=== PATIENT | male | born 1940 | race Caucasian/White ===

== ENCOUNTER 2018-03-27 18:07 | Inpatient (IN) | payer BC, OTHER ==
[2018-03-27 18:29] LABS: ADD MAN DIFF? NO
[2018-03-27 18:34] LABS: WHITE BLOOD COUNT 14.3 10^3/ul (4.8-10.8)
[2018-03-27 18:34] LABS: BASOPHILS % 0.2 % (0.0-2.0); EOSINOPHILS % 0.1 % (0.0-7.0); HEMATOCRIT 27.8 % (42.0-52.0); HEMOGLOBIN 9.6 g/dl (14.0-18.0); LYMPHOCYTES # 2.6 10^3/ul (0.8-2.9); LYMPHOCYTES % 18.4 % (15.0-51.0); MEAN CORPUSCULAR HEMOGLOBIN 34.3 pg (29.0-33.0); MEAN CORPUSCULAR HGB CONC 34.5 g/dl (32.0-37.0); MEAN CORPUSCULAR VOLUME 99.3 fl (82.0-101.0); MEAN PLATELET VOLUME 8.8 fl (7.4-10.4); MONOCYTE # 1.5 10^3/ul (0.3-0.9); MONOCYTES % 10.4 % (0.0-11.0); NEUTROPHIL # 9.5 10^3/ul (1.6-7.5); NEUTROPHILS % 66.6 % (39.0-77.0); PLATELET COUNT 127 10^3/UL (140-415); POSITIVE DIFF @See below; RED CELL DISTRIBUTION WIDTH 18.4 % (11.5-14.5)
[2018-03-27 18:49] LABS: AMMONIA 16 umol/l (9-30)
[2018-03-27 18:52] LABS: ALANINE AMINOTRANSFERASE 40 IU/L (13-69); ALBUMIN 1.8 g/dl (3.3-4.9); ALKALINE PHOSPHATASE 293 IU/L (42-121); ANION GAP 9 (5-13); ASPARTATE AMINO TRANSFERASE 62 IU/L (15-46); BILIRUBIN,INDIRECT 2.3 mg/dl (0-1.1); BILIRUBIN,TOTAL 3.2 mg/dl (0.2-1.3); BLOOD UREA NITROGEN 16 mg/dl (7-20); CALCIUM 7.1 mg/dl (8.4-10.2); CARBON DIOXIDE 24 mmol/L (21-31); CHLORIDE 92 mmol/L (97-110); CREATININE 0.51 mg/dl (0.61-1.24); GLUCOSE 160 mg/dl (70-220); POTASSIUM 4.1 mmol/L (3.5-5.1); SODIUM 125 mmol/L (135-144); TOTAL PROTEIN 3.6 g/dl (6.1-8.1)
[2018-03-27] MEDS: SOD CHLORIDE 0.9% 1,950 ML IV (18:52)
[2018-03-27 19:04] LABS: TROPONIN-I 0.019 ng/ml (0.000-0.120)
[2018-03-27 19:08] LABS: FREE THYROXINE INDEX (Calc) 2.06 ug/ml (0.65-3.89); T3 UPTAKE 58.9 % (23.5-40.5); T4 (THYROXINE) 3.5 ug/dl (5.5-11.0)
[2018-03-27 19:15] LABS: INR 1.38; PROTIME 17.1 Sec (11.9-14.9); PT RATIO 1.3
[2018-03-27 19:16] LABS: PARTIAL THROMBOPLASTIN TIME 40.8 Sec (23.0-35.0)
[2018-03-27 19:47] LABS: ANISOCYTOSIS 2+ (0-0); BAND NEUTROPHILS #M 0.2 10^3/ul (0.0-0.6); BAND NEUTROPHILS % (M) 2 % (0-4); GIANT THROMBO% (M) 1 % (0-0); LYMPHOCYTES #M 1.7 10^3/ul (0.8-2.9); LYMPHOCYTES % (M) 12 % (15-51); MICROCYTOSIS 1+ (0-0); MONOCYTE #M 0.5 10^3/ul (0.3-0.9); MONOCYTES % (M) 4 % (0-11); PLATELET ESTIMATE DECREASED; POIKILOCYTOSIS 1+ (0-0); POLYCHROMASIA 1+ (0-0); SEG NEUT #M 11.8 10^3/ul (1.6-7.5); SEGMENTED NEUTROPHILS (M) % 82 % (39-77); SMUDGE%M 17 % (0-0)
[2018-03-27] MEDS ORDERED: ONDANSETRON 4 MG INJ IV ×2 (20:00→20:30)
[2018-03-27] MEDS ORDERED: ACETAMINOPHEN 325 MG TAB PO ×2 (20:00→20:30)
[2018-03-27] MEDS: CEFEPIME 2GM/50 ML (PMX) 50 ML IVPB (20:29)
[2018-03-27] MEDS ORDERED: DOCUSATE SODIUM 100 MG CAP PO (20:30)
[2018-03-27] MEDS ORDERED: NACL 0.9% 3 ML SYG IV (20:30)
[2018-03-27] MEDS ORDERED: BISACODYL (EC) 5 MG TAB PO (20:30)
[2018-03-27] MEDS: LINEZOLID 600 MG/D5W (PMX) 300 ML IVPB (21:06)
[2018-03-27 21:13] LABS: LIPASE 31 U/L (23-300)
[2018-03-27 21:29] LABS: FREE T4 (FREE THYROXINE) 1.32 ng/dl (0.78-2.44)
[2018-03-27 21:30] LABS: FREE T3 1.94 pg/ml (2.77-5.27)
[2018-03-27] MEDS: PIPER-TAZO 3.375 GM IV (PMX) 100 ML IVPB (23:30)
[2018-03-27] MEDS: RIFAXIMIN 550 MG TAB PO (23:38)
[2018-03-28] MEDS: SOD CHLORIDE 0.9% 500 ML IV ×2 (00:25→04:44)
[2018-03-28 00:55] LABS: ALANINE AMINOTRANSFERASE 41 IU/L (13-69); ALBUMIN 1.7 g/dl (3.3-4.9); ALKALINE PHOSPHATASE 271 IU/L (42-121); ANION GAP 10 (5-13); ASPARTATE AMINO TRANSFERASE 51 IU/L (15-46); BILIRUBIN,TOTAL 2.6 mg/dl (0.2-1.3); BLOOD UREA NITROGEN 14 mg/dl (7-20); CALCIUM 6.8 mg/dl (8.4-10.2); CARBON DIOXIDE 22 mmol/L (21-31); CHLORIDE 95 mmol/L (97-110); CREATININE 0.48 mg/dl (0.61-1.24); GLUCOSE 163 mg/dl (70-220); POTASSIUM 3.6 mmol/L (3.5-5.1); SODIUM 127 mmol/L (135-144); TOTAL PROTEIN 3.4 g/dl (6.1-8.1)
[2018-03-28 05:29] LABS: ABNORMAL IP MESSAGE 1; HEMATOCRIT 26.6 % (42.0-52.0); HEMOGLOBIN 9.2 g/dl (14.0-18.0); MEAN CORPUSCULAR HEMOGLOBIN 34.1 pg (29.0-33.0); MEAN CORPUSCULAR HGB CONC 34.6 g/dl (32.0-37.0); MEAN CORPUSCULAR VOLUME 98.5 fl (82.0-101.0); MEAN PLATELET VOLUME 8.8 fl (7.4-10.4); PLATELET COUNT 127 10^3/UL (140-415); POSITIVE DIFF @See below; RED CELL DISTRIBUTION WIDTH 18.5 % (11.5-14.5)
[2018-03-28 05:29] LABS: WHITE BLOOD COUNT 11.3 10^3/ul (4.8-10.8)
[2018-03-28 05:39] LABS: HEMOGLOBIN A1C 4.3 % (0-5.9)
[2018-03-28 05:43] LABS: ADD MAN DIFF? YES
[2018-03-28 05:50] LABS: ALANINE AMINOTRANSFERASE 38 IU/L (13-69); ALBUMIN 1.8 g/dl (3.3-4.9); ALBUMIN/GLOBULIN RATIO 1.12; ALKALINE PHOSPHATASE 280 IU/L (42-121); ANION GAP 6 (5-13); ASPARTATE AMINO TRANSFERASE 50 IU/L (15-46); BILIRUBIN,INDIRECT 2.1 mg/dl (0-1.1); BILIRUBIN,TOTAL 2.8 mg/dl (0.2-1.3); BLOOD UREA NITROGEN 13 mg/dl (7-20); CALCIUM 6.8 mg/dl (8.4-10.2); CARBON DIOXIDE 22 mmol/L (21-31); CHLORIDE 99 mmol/L (97-110); CREATININE 0.48 mg/dl (0.61-1.24); GLUCOSE 111 mg/dl (70-220); POTASSIUM 3.6 mmol/L (3.5-5.1); SODIUM 127 mmol/L (135-144); TOTAL PROTEIN 3.4 g/dl (6.1-8.1)
[2018-03-28] MEDS: PANTOPRAZOLE (EC) 40 MG TAB PO (06:00)
[2018-03-28 06:06] LABS: LACTIC ACID 2.5 mmol/L (0.5-2.0)
[2018-03-28] MEDS: PIPER-TAZO 3.375 GM IV (PMX) 100 ML IVPB ×4 (06:26→23:28)
[2018-03-28] MEDS: SOD CHLORIDE 0.9% 1,000 ML IV (07:56)
[2018-03-28] MEDS: METOPROLOL 25 MG TAB PO ×2 (08:16→20:51)
[2018-03-28 08:17] LABS: ANISOCYTOSIS 2+ (0-0); BAND NEUTROPHILS #M 1.3 10^3/ul (0.0-0.6); BAND NEUTROPHILS % (M) 12 % (0-4); GIANT THROMBO% (M) 4 % (0-0); LYMPHOCYTES #M 1.5 10^3/ul (0.8-2.9); LYMPHOCYTES % (M) 14 % (15-51); METAMYELOCYTES #M 0.1 10^3/ul (0.0-0.0); METAMYELOCYTES %M 1 % (0-0); MONOCYTE #M 0.2 10^3/ul (0.3-0.9); MONOCYTES % (M) 2 % (0-11); MYELOCYTES #M 0.3 10^3/ul (0.0-0.0); MYELOCYTES % (M) 3 % (0-0); PLATELET ESTIMATE DECREASED; POIKILOCYTOSIS 1+ (0-0); REACTIVE LYMPHOCYTES #M 0.6 10^3/ul (0.0-0.0); REACTIVE LYMPHOCYTES% (M) 6 % (0-0); SEG NEUT #M 7.2 10^3/ul (1.6-7.5); SEGMENTED NEUTROPHILS (M) % 62 % (39-77); SMUDGE%M 28 % (0-0)
[2018-03-28] MEDS: MIDODRINE 2.5 MG TAB PO ×3 (08:17→20:51)
[2018-03-28] MEDS: RIFAXIMIN 550 MG TAB PO ×2 (08:17→20:52)
[2018-03-28] MEDS: LINEZOLID 600 MG/D5W (PMX) 300 ML IVPB (08:32)
[2018-03-28 09:06] LABS: ALANINE AMINOTRANSFERASE 36 IU/L (13-69); ALBUMIN 1.6 g/dl (3.3-4.9); ALBUMIN/GLOBULIN RATIO 0.94; ALKALINE PHOSPHATASE 232 IU/L (42-121); ANION GAP 8 (5-13); ASPARTATE AMINO TRANSFERASE 41 IU/L (15-46); BILIRUBIN,TOTAL 2.5 mg/dl (0.2-1.3); BLOOD UREA NITROGEN 13 mg/dl (7-20); CALCIUM 6.7 mg/dl (8.4-10.2); CARBON DIOXIDE 24 mmol/L (21-31); CHLORIDE 99 mmol/L (97-110); CREATININE 0.47 mg/dl (0.61-1.24); GLUCOSE 102 mg/dl (70-220); POTASSIUM 3.5 mmol/L (3.5-5.1); SODIUM 131 mmol/L (135-144); TOTAL PROTEIN 3.3 g/dl (6.1-8.1)
[2018-03-28] MEDS: SOD CHLORIDE 0.9% 100 ML (11:30)
[2018-03-28] MEDS: IOHEXOL 300MG/ML 150 ML BTL (11:30)
[2018-03-28 12:28] LABS: OSMOLALITY 266 mOsm/kg (280-295)
[2018-03-28 14:38] LABS: ALANINE AMINOTRANSFERASE 29 IU/L (13-69); ALBUMIN 1.2 g/dl (3.3-4.9); ALBUMIN/GLOBULIN RATIO 0.66; ALKALINE PHOSPHATASE 153 IU/L (42-121); ANION GAP 21 (5-13); ASPARTATE AMINO TRANSFERASE 25 IU/L (15-46); BILIRUBIN,INDIRECT 1.4 mg/dl (0-1.1); BILIRUBIN,TOTAL 1.5 mg/dl (0.2-1.3); BLOOD UREA NITROGEN 9 mg/dl (7-20); CARBON DIOXIDE 16 mmol/L (21-31); CHLORIDE 106 mmol/L (97-110); CREATININE 0.38 mg/dl (0.61-1.24); GLUCOSE 131 mg/dl (70-220); SODIUM 143 mmol/L (135-144)
[2018-03-28 14:44] LABS: LACTIC ACID 2.2 mmol/L (0.5-2.0)
[2018-03-28 14:45] LABS: POTASSIUM 2.7 mmol/L (3.5-5.1)
[2018-03-28] MEDS ORDERED: LOPERAMIDE 2 MG CAP PO ×2 (15:30)
[2018-03-28] MEDS: POTASSIUM CHLORIDE 20 MEQ POWDER FOR ORAL SOLN PO (15:35)
[2018-03-28] MEDS: morphine 4 MG/ML VIAL IV (16:06)
[2018-03-28] MEDS: POTASSIUM CHLORIDE 100 ML IVPB ×2 (16:54→20:49)
[2018-03-28 17:53] LABS: ALANINE AMINOTRANSFERASE 33 IU/L (13-69); ALBUMIN 1.3 g/dl (3.3-4.9); ALBUMIN/GLOBULIN RATIO 0.92; ALKALINE PHOSPHATASE 223 IU/L (42-121); ANION GAP 6 (5-13); ASPARTATE AMINO TRANSFERASE 38 IU/L (15-46); BILIRUBIN,INDIRECT 1.4 mg/dl (0-1.1); BILIRUBIN,TOTAL 1.9 mg/dl (0.2-1.3); BLOOD UREA NITROGEN 11 mg/dl (7-20); CARBON DIOXIDE 17 mmol/L (21-31); CHLORIDE 105 mmol/L (97-110); CREATININE 0.49 mg/dl (0.61-1.24); GLUCOSE 138 mg/dl (70-220); POTASSIUM 3.6 mmol/L (3.5-5.1); SODIUM 128 mmol/L (135-144); TOTAL PROTEIN 2.7 g/dl (6.1-8.1)
[2018-03-28 17:56] LABS: CALCIUM 5.7 mg/dl (8.4-10.2)
[2018-03-28 20:35] LABS: ALANINE AMINOTRANSFERASE 34 IU/L (13-69); ALBUMIN 1.5 g/dl (3.3-4.9); ALKALINE PHOSPHATASE 244 IU/L (42-121); ANION GAP 6 (5-13); ASPARTATE AMINO TRANSFERASE 43 IU/L (15-46); BILIRUBIN,INDIRECT 1.5 mg/dl (0-1.1); BLOOD UREA NITROGEN 12 mg/dl (7-20); CALCIUM 6.6 mg/dl (8.4-10.2); CARBON DIOXIDE 19 mmol/L (21-31); CHLORIDE 103 mmol/L (97-110); CREATININE 0.54 mg/dl (0.61-1.24); GLUCOSE 124 mg/dl (70-220); POTASSIUM 4.4 mmol/L (3.5-5.1); SODIUM 128 mmol/L (135-144)
[2018-03-29] MEDS: PANTOPRAZOLE (EC) 40 MG TAB PO (05:30)
[2018-03-29] MEDS: PIPER-TAZO 3.375 GM IV (PMX) 100 ML IVPB ×3 (05:30→17:31)
[2018-03-29 06:14] LABS: ABNORMAL IP MESSAGE 1; HEMATOCRIT 24.4 % (42.0-52.0); HEMOGLOBIN 8.6 g/dl (14.0-18.0); MEAN CORPUSCULAR HGB CONC 35.2 g/dl (32.0-37.0); MEAN CORPUSCULAR VOLUME 99.2 fl (82.0-101.0); MEAN PLATELET VOLUME 8.7 fl (7.4-10.4); PLATELET COUNT 84 10^3/UL (140-415); POSITIVE DIFF @See below; RED BLOOD COUNT 2.46 10^6/ul (4.70-6.10); RED CELL DISTRIBUTION WIDTH 18.8 % (11.5-14.5)
[2018-03-29 06:14] LABS: WHITE BLOOD COUNT 7.9 10^3/ul (4.8-10.8)
[2018-03-29 06:18] LABS: ADD MAN DIFF? YES
[2018-03-29 08:04] LABS: ANISOCYTOSIS 1+ (0-0); BAND NEUTROPHILS #M 0.1 10^3/ul (0.0-0.6); BAND NEUTROPHILS % (M) 2 % (0-4); GIANT THROMBO% (M) 1 % (0-0); LYMPHOCYTES #M 2.2 10^3/ul (0.8-2.9); LYMPHOCYTES % (M) 29 % (15-51); MONOCYTE #M 0.6 10^3/ul (0.3-0.9); MONOCYTES % (M) 8 % (0-11); PLATELET ESTIMATE DECREASED; POIKILOCYTOSIS 1+ (0-0); POLYCHROMASIA 1+ (0-0); SEG NEUT #M 4.8 10^3/ul (1.6-7.5); SEGMENTED NEUTROPHILS (M) % 61 % (39-77); SMUDGE%M 23 % (0-0)
[2018-03-29] MEDS: RIFAXIMIN 550 MG TAB PO ×2 (08:28→21:26)
[2018-03-29] MEDS: MIDODRINE 2.5 MG TAB PO ×3 (08:28→21:26)
[2018-03-29] MEDS: METOPROLOL 25 MG TAB PO ×2 (08:33→21:27)
[2018-03-29 10:09] LABS: ALANINE AMINOTRANSFERASE 37 IU/L (13-69); ALBUMIN 1.7 g/dl (3.3-4.9); ALBUMIN/GLOBULIN RATIO 1.06; ALKALINE PHOSPHATASE 272 IU/L (42-121); ANION GAP 5 (5-13); ASPARTATE AMINO TRANSFERASE 44 IU/L (15-46); BILIRUBIN,INDIRECT 2.1 mg/dl (0-1.1); BILIRUBIN,TOTAL 2.8 mg/dl (0.2-1.3); BLOOD UREA NITROGEN 11 mg/dl (7-20); CALCIUM 7.1 mg/dl (8.4-10.2); CARBON DIOXIDE 21 mmol/L (21-31); CHLORIDE 102 mmol/L (97-110); CREATININE 0.58 mg/dl (0.61-1.24); GLUCOSE 112 mg/dl (70-220); MAGNESIUM 1.8 mg/dl (1.7-2.5); PHOSPHORUS 2.7 mg/dl (2.5-4.9); POTASSIUM 4.3 mmol/L (3.5-5.1); SODIUM 128 mmol/L (135-144); TOTAL PROTEIN 3.3 g/dl (6.1-8.1)
[2018-03-29 10:55] LABS: URIC ACID 2.8 mg/dl (3.1-7.9)
[2018-03-29] MEDS: HYDROCODONE/APAP (5/325) TAB PO (22:43)
[2018-03-30] MEDS: PIPER-TAZO 3.375 GM IV (PMX) 100 ML IVPB ×3 (00:16→11:39)
[2018-03-30 03:51] LABS: ADD UMIC YES; UR ASCORBIC ACID NEGATIVE (NEGATIVE); UR BACTERIA FEW /HPF (NONE SEEN); UR BILIRUBIN (Dip) NEGATIVE (NEGATIVE); UR BLOOD (Dip) 2+ mg/dL (NEGATIVE); UR BUDDING YEAST FEW /HPF (NONE SEEN); UR CLARITY SLIGHTLY CLOUDY (CLEAR); UR COLOR AMBER (YELLOW); UR GLUCOSE (Dip) NEGATIVE (NEGATIVE); UR KETONES (Dip) NEGATIVE (NEGATIVE); UR LEUKOCYTE ESTERASE (Dip) 1+ Leu/ul (NEGATIVE); UR MUCUS FEW /HPF (NONE SEEN); UR NITRITE (Dip) NEGATIVE (NEGATIVE); UR RBC 13 /HPF (0-5); UR SPECIFIC GRAVITY (Dip) 1.035 (1.003-1.030); UR SQUAMOUS EPITHELIAL CELL FEW /HPF (FEW); UR TOTAL PROTEIN (Dip) NEGATIVE (NEGATIVE); UR UROBILINOGEN (Dip) NEGATIVE (NEGATIVE); UR WBC 41 /HPF (0-5)
[2018-03-30 05:22] LABS: WHITE BLOOD COUNT 6.1 10^3/ul (4.8-10.8)
[2018-03-30 05:22] LABS: ABNORMAL IP MESSAGE 1; HEMATOCRIT 25.4 % (42.0-52.0); HEMOGLOBIN 8.6 g/dl (14.0-18.0); MEAN CORPUSCULAR HEMOGLOBIN 34.5 pg (29.0-33.0); MEAN CORPUSCULAR HGB CONC 33.9 g/dl (32.0-37.0); MEAN PLATELET VOLUME 9.2 fl (7.4-10.4); PLATELET COUNT 74 10^3/UL (140-415); POSITIVE DIFF @See below; RED BLOOD COUNT 2.49 10^6/ul (4.70-6.10)
[2018-03-30 05:27] LABS: ADD MAN DIFF? YES
[2018-03-30] MEDS: PANTOPRAZOLE (EC) 40 MG TAB PO (05:27)
[2018-03-30 05:51] LABS: ANION GAP 3 (5-13); BLOOD UREA NITROGEN 12 mg/dl (7-20); CALCIUM 7.1 mg/dl (8.4-10.2); CARBON DIOXIDE 22 mmol/L (21-31); CHLORIDE 105 mmol/L (97-110); CREATININE 0.52 mg/dl (0.61-1.24); GLUCOSE 104 mg/dl (70-220); PHOSPHORUS 2.7 mg/dl (2.5-4.9); POTASSIUM 4.1 mmol/L (3.5-5.1); SODIUM 130 mmol/L (135-144)
[2018-03-30 06:14] LABS: SODIUM,URINE RANDOM 38 mmol/L (30-90)
[2018-03-30 06:14] LABS: CREATININE,URINE RANDOM 73.68 mg/dl (20-370)
[2018-03-30 07:39] LABS: ANISOCYTOSIS 1+ (0-0); BAND NEUTROPHILS % (M) 1 % (0-4); BASOPHILS % (M) 1 % (0-2); LYMPHOCYTES #M 1.7 10^3/ul (0.8-2.9); LYMPHOCYTES % (M) 28 % (15-51); MICROCYTOSIS 1+ (0-0); MONOCYTES % (M) 1 % (0-11); PLATELET ESTIMATE DECREASED; SEG NEUT #M 4.2 10^3/ul (1.6-7.5); SEGMENTED NEUTROPHILS (M) % 69 % (39-77); SMUDGE%M 11 % (0-0)
[2018-03-30] MEDS: METOPROLOL 25 MG TAB PO (09:00)
[2018-03-30] MEDS: RIFAXIMIN 550 MG TAB PO (09:06)
[2018-03-30] MEDS: MIDODRINE 2.5 MG TAB PO (09:06)
[2018-03-30] MEDS: SOD CHLORIDE 0.9% 1,000 ML IV (09:33)
[2018-03-30 10:09] LABS: OSMOLALITY,URINE 506 mOsm/kg (250-1200)
[2018-03-30 10:32] LABS: OSMOLALITY 269 mOsm/kg (280-295)
== END 2018-03-30 13:20 | disposition home or self-care (01) | DRG 592 ==
LOC: E/R 18:07 → 2NE 19:57
DX: L89.154 Pressure ulcer of sacral region, stage 4 (principal); E43 Unspecified severe protein-calorie malnutrition; E87.1 Hypo-osmolality and hyponatremia; J98.11 Atelectasis; Z68.1 Body mass index [BMI] 19.9 or less, adult; E86.0 Dehydration; K74.60 Unspecified cirrhosis of liver; D64.9 Anemia, unspecified; K52.9 Noninfective gastroenteritis and colitis, unspecified; I49.9 Cardiac arrhythmia, unspecified; K72.90 Hepatic failure, unspecified without coma; Z74.01 Bed confinement status; D69.59 Other secondary thrombocytopenia; Z87.891 Personal history of nicotine dependence; Z85.038 Personal history of other malignant neoplasm of large intestine; Z92.21 Personal history of antineoplastic chemotherapy
CPT/HCPCS: 36415; 70450; 71045; 74177; 76705; 80048; 80053; 81001; 81003; 82140; 82533; 82962; 83036; 83605; 83690; 83735; 83930; 83935; 84100; 84155; 84300; 84436; 84439; 84443; 84479; 84481; 84484; 84560; 85025; 85610; 85730; 86140; 87040; 87081; 92610; 93005; 99291-25